=== PATIENT | male | born 1950 | race Caucasian/White ===

== ENCOUNTER 2019-12-15 14:21 | Inpatient (IN) | payer OTHER ==
[~2019-12-15] VITALS: Ht 182.9 cm; Wt 124.7 kg
[2019-12-15 14:21] VITALS: BP 166/77
[~2019-12-15 14:21] MED LIST: HYDROCHLOROTH12.5 M1 PO; METFORMIN HCL500 MG PO; PRINIVIL20 MG PO; ZOFRAN ODT4 MG DISSOLVE
[2019-12-15 14:42] LABS: ABSOLUTE BASOPHILS 0.1 thou/uL (0.0-0.2); ABSOLUTE EOSINOPHILS 0.1 thou/uL (0.0-0.7); ABSOLUTE LYMPHOCYTES 2.4 thou/uL (0.8-5.3); ABSOLUTE MONOCYTES 0.5 thou/uL (0.0-1.2); ABSOLUTE NEUTROPHILS 5.6 thou/uL (1.6-8.1); EOSINOPHILS 1.4 %; HEMOGLOBIN 14.2 gm/dL (14.0-18.0); MCH 28.2 pg (26.0-34.0); MCHC 33.8 g/dL (28.0-37.0); MCV 83.5 fL (80.0-100.0); MPV 9.2 fl. (7.2-11.1); NUCLEATED RBCS 0 /100WBC; PLATELET COUNT* 155 thou/uL (150-400); POLYS 63.6 %; RBC 5.03 mil/uL (4.50-6.00); RDW-CV 13.9 % (10.5-14.5); WBC 8.7 thou/uL (4.0-11.0)
[2019-12-15] MEDS ORDERED: CARVEDILOL12.5 MG PO (14:48)
[2019-12-15 14:52] LABS: CALCIUM 9.1 mg/dL (8.5-10.1); CREATININE 1.3 mg/dL (0.6-1.3); POTASSIUM 4.1 mmol/L (3.5-5.1); PROTIME 10.4 Seconds (9.20-11.50)
[2019-12-15 14:56] LABS: ALBUMIN 3.9 g/dL (3.4-5.0); TOTAL BILIRUBIN 0.5 mg/dL (<0.1-1.0); TOTAL PROTEIN 7.3 g/dL (6.4-8.2)
[2019-12-15 19:16] LABS: CHOLESTEROL 190 mg/dL (<200); HDL CHOLESTEROL 45 mg/dL (>40); LDL CHOLESTEROL 112 mg/dL (<100); TC:HDL 4.2 Ratio (Not establshd); TRIGLYCERIDE 166 mg/dL (<150); VLDL 33 mg/dL (<40)
[2019-12-15 19:27] LABS: SERUM ASSESSMENT Clear
[2019-12-15 19:42] VITALS: BP 165/72
[2019-12-15 20:00] VITALS: BP 158/78
[2019-12-16] VITALS (7 sets, daily range): BP systolic 118–170; BP diastolic 63–79
[2019-12-16 04:24] LABS: ALBUMIN 3.4 g/dL (3.4-5.0); CALCIUM 8.3 mg/dL (8.5-10.1); CREATININE 1.1 mg/dL (0.6-1.3); POTASSIUM 3.8 mmol/L (3.5-5.1); TOTAL BILIRUBIN 0.4 mg/dL (<0.1-1.0); TOTAL PROTEIN 6.4 g/dL (6.4-8.2)
[2019-12-16 04:28] LABS: CHOLESTEROL 172 mg/dL (<200); HDL CHOLESTEROL 43 mg/dL (>40); LDL CHOLESTEROL 109 mg/dL (<100); TRIGLYCERIDE 104 mg/dL (<150); VLDL 21 mg/dL (<40)
[2019-12-16 04:31] LABS: SERUM ASSESSMENT Clear
--- NOTE | 2019-12-16 12:14 | EKG ---
[place] [address] ELECTROCARDIOGRAM REPORT Name: VITOR FARIAS Room: [address] ADM IN M.R.#: [id number] Admission: 12/15/19 Attend Phys: Augustin Smith Discharge: Date of : 46 Date of Service: 12/15/19 1431 Report #: [id number] THIS REPORT FOR: //name// [facility] ED Test Date: 2019-12-15 Test Time: 14:31:05 Pat Name: VITOR FARIAS Department: Room: [facility] Gender: M Intranet Developer: VIDYA : 1950 Requested By: Eliazar Coppola Order Number: [id number] MD: Blayne Taylor Measurements Intervals [place] Rate: 73 P: 38 AK: 155 QRS: -31 QRSD: 93 T: 51 QT: 391 QTc: 431 Interpretive Statements Sinus rhythm Left axis deviation Low voltage, precordial leads RSR' in V1 or V2, right VCD or RVH Compared to ECG 10/31/2014 10:30:10 Left-axis deviation now present Low QRS voltage now present Right ventricular hypertrophy now present RSR' in V1 or V2 now present Electronically Signed On 12-16-2019 12:13:43 CDT by Blayne Taylor [email or web address] <ELECTRONICALLY SIGNED> By: Makeda Taylor MD, FACC 12/16/19 1213 1431 1431 Makeda Taylor MD, [facility] /EPI
[2019-12-17] VITALS: BP 144/60
[2019-12-17 04:00] VITALS: BP 159/81
[2019-12-17 08:00] VITALS: BP 134/68
[2019-12-17] MEDS ORDERED: LIPITOR40 MG PO (11:58)
[2019-12-17] MEDS ORDERED: ASA81BEC PO (11:58)
--- NOTE | 2019-12-17 16:52 | 2DMMODE ---
[place] [address] 2 D/M-MODE ECHOCARDIOGRAM Name: IVTOR FARIAS Room: [address] IN M.R.#: [id number] Admission: 12/15/19 Attend Phys: Augustin Smith Discharge: 12/17/19 Date of : 46 Date of Service: 12/17/19 1652 Report #: [id number] THIS REPORT FOR: cc: Agapito Reynaga Adam J DO Holkins,Manuel Kent MD [facility] ~ APPROVED REPORT Study performed: 12/17/2019 10:54:49 EXAM: Comprehensive 2D, Doppler, and color-flow Echocardiogram Patient Location: Bedside BSA: 2.42 HR: 70 bpm BP: 159/81 mmHg Other Information Study Quality: Adequate Indications CVA/TIA Echo Enhancing Agent Indication: Rule out Shunt Agent(s) / Amount(s) Used: Agitated Saline cc 2D Dimensions IVSd: 17.08 (7-11mm) LVOT Diam: 23.82 (18-24mm) LVDd: 51.24 mm PWd: 13.48 (7-11mm) Ascending Ao: 31.30 (22-36mm) LVDs: 29.24 (25-40mm) Aortic Root: 31.02 mm Volumes Left Atrial Volume (Systole) LA ESV Index: 24.40 mL/m2 Aortic Valve AoV Peak John.: 1.06 m/s AO Peak Gr.: 4.45 mmHg LVOT Max P.57 mmHg AO Mean Gr.: 2.70 mmHg LVOT Mean P.30 mmHg LVOT Max V: 0.80 m/s AO V2 VTI: 23.88 cm LVOT Mean V: 0.53 m/[place] [address] 2 D/M-MODE ECHOCARDIOGRAM Name: VITOR FARIAS Room: [address]R.#: [id number] Admission: 12/15/19 Attend Phys: Augustin Smith Discharge: 12/17/19 Date of : 46 Date of Service: 12/17/19 1652 Report #: [id number] CORA (VTI): 3.57 cm2 LVOT V1 VTI: 19.15 cm Mitral Valve E/A Ratio: 1.87 MV Decel. Time: 200.98 ms MV E Max John.: 0.78 m/s MV PHT: 58.28 ms MVA (PHT): 3.77 cm2 TDI E/Lateral E': 8.67 E/Medial E': 4.88 Medial E' John.: 0.16 m/s Lateral E' John.: 0.09 m/s Pulmonary Valve PV Peak John.: 0.62 m/s PV Peak Gr.: 1.54 mmHg Left Ventricle The left ventricle is normal size. There is normal LV segmental wall motion. There is normal left ventricular wall thickness. Left ventricular systolic function is normal. The left ventricular ejection fraction is within the normal range. LVEF is 55-60%. Right Ventricle The right ventricle is normal size. The right ventricular systolic function is normal. Atria The left atrium size is normal. Injection of bubbles documented no interatrial shunt. The right atrium size is normal. Aortic Valve The aortic valve is normal in structure. Trace aortic regurgitation. There is no aortic valvular stenosis. Mitral Valve The mitral valve is normal in structure. Mild mitral regurgitation. No evidence of mitral valve stenosis. Tricuspid Valve The tricuspid valve is normal in structure. There is no tricuspid valve regurgitation noted. Pulmonic Valve The pulmonary valve is normal in structure. There is no pulmonic [place] [address] 2 D/M-MODE ECHOCARDIOGRAM Name: VITOR FARIAS Room: [address] IN ..#: [id number] Admission: 12/15/19 Attend Phys: Augustin Smith Discharge: 12/17/19 Date of : 46 Date of Service: 12/17/19 1652 Report #: [id number] Great Vessels The aortic root is normal in size. IVC is not visualized. Pericardium There is no pericardial effusion. <Conclusion> The left ventricle is normal size. There is normal left ventricular wall thickness. Left ventricular systolic function is normal. The left ventricular ejection fraction is within the normal range. LVEF is 55-60%. The right ventricle is normal size. The left atrium size is normal. The aortic valve is normal in structure. Trace aortic regurgitation. There is no aortic valvular stenosis. The mitral valve is normal in structure. Mild mitral regurgitation. The tricuspid valve is normal in structure. There is no pericardial effusion. There is normal LV segmental wall motion. Injection of bubbles documented no interatrial shunt. <ELECTRONICALLY SIGNED> By: Manuel Brewer MD, FACC 12/17/191651 51 51 Manuel Brewer MD, FACC /INF
[2019-12-18 02:06] LABS: GLYCOHEMOGLOBIN (HGB A1C) 6.8 % (4.8-5.6)
== END 2019-12-17 15:55 | disposition home or self-care (01) | DRG 69 ==
LOC: M.ERS 14:21 → M.2W 15:23 → M.TBA-ER 15:23 → M.2W 20:31
PROVIDERS: Emergency Medicine Emergency Medical Services; ADMIT Internal Medicine; ATTEND Internal Medicine
DX: G45.9 Transient cerebral ischemic attack, unspecified (principal); E11.40 Type 2 diabetes mellitus with diabetic neuropathy, unspecified; I10 Essential (primary) hypertension; H81.09 Meniere's disease, unspecified ear; Z20.828 Contact with and (suspected) exposure to other viral communicable diseases; K21.9 Gastro-esophageal reflux disease without esophagitis; Z79.84 Long term (current) use of oral hypoglycemic drugs; Z79.899 Other long term (current) drug therapy; Z91.041 Radiographic dye allergy status